=== PATIENT | female | born 1990 | race African-American/Black ===

== ENCOUNTER 2016-05-12 13:01 | Emergency (ER) | payer OTHER ==
[2016-05-12 15:54] LABS: HEMOGLOBIN 11.6 gm/dl (12.3-15.3); RED BLOOD COUNT 4.2 M/UL (4.00-5.10); WHITE BLOOD COUNT 10.8 K/UL (4.5-11.0)
[2016-05-12 16:59] LABS: BUN/CREATININE RATIO 14 (0-10)
== END 2016-05-12 17:50 | disposition home or self-care (01) ==
LOC: ER1 13:01
PROVIDERS: Specialist/Technologist Athletic Trainer
DX: G40.309 Generalized idiopathic epilepsy and epileptic syndromes, not intractable, without status epilepticus (principal); Z79.899 Other long term (current) drug therapy
CPT/HCPCS: 36415; 76801; 80053; 81001; 82550; 83605; 83735; 85025; 93005; 96360; 99285